=== PATIENT | male | born 1985 | race Caucasian/White ===

== ENCOUNTER 2023-03-02 15:26 | Emergency (ER) | payer MEDICAID ==
[~2023-03-02] VITALS: Ht 180.3 cm; Wt 83.9 kg
[2023-03-02] MEDS ORDERED: ACETAMINOPHEN ES 500 MG TABLET PO ONE (17:30)
[2023-03-02 17:48] LABS: BASOPHILS % (AUTO) 0.6 % (0.0-2.0); EOSINOPHILS # (AUTO) 0.1 K/uL (0.0-0.7); EOSINOPHILS % (AUTO) 2.5 % (0.0-6.0); HEMATOCRIT 34 % (39-51); HEMOGLOBIN 10.9 g/dL (13.5-17.5); LYMPHOCYTES # (AUTO) 0.9 K/uL (0.8-4.8); LYMPHOCYTES % (AUTO) 18.2 % (20.0-44.0); MEAN CORPUSCULAR HEMOGLOBIN 24 PG (26.0-33.0); MEAN CORPUSCULAR HGB CONC 32 g/dl (31.0-36.0); MEAN CORPUSCULAR VOLUME 77 fL (80-96); MONOCYTES # (AUTO) 0.4 K/uL (0.1-1.30); NEUTROPHILS # (AUTO) 3.6 K/uL (1.8-8.9); NEUTROPHILS % (AUTO) 70.7 % (43.0-81.0); PLATELET COUNT (AUTO) 331 K/uL (150-450); RED BLOOD CELL COUNT(AUTO) 4.45 MIL/uL (4.5-6.0); RED CELL DISTRIBUTION WIDTH 22.2 % (11.5-15.0); WHITE BLOOD COUNT (AUTO) 5.2 K/uL (4.3-11.0)
[2023-03-02] MEDS ORDERED: ACETAMINOPHEN 325 MG TABLET ONE (17:55)
[2023-03-02] MEDS ORDERED: ACETAMINOPHEN ES 500 MG TABLET ONE (17:56)
[2023-03-02 18:01] LABS: CALCIUM, SERUM 8.7 mg/dL (8.5-10.1); CREATININE 0.8 mg/dL (0.6-1.3); POTASSIUM 4.3 mmol/L (3.5-5.1)
[2023-03-02] MEDS ORDERED: ACET-2605 PO (18:36)
[2023-03-02] MEDS ORDERED: IBUP-1955 PO (18:36)
[2023-03-02] MEDS ORDERED: HYDR-3972 PO (18:52)
[2023-03-02 19:02] VITALS: BP 129/71; TEMP 97.9; O2SAT 100
== END 2023-03-02 19:01 | disposition home or self-care (01) ==
LOC: ER 15:26
DX: S22.32XA Fracture of one rib, left side, initial encounter for closed fracture (principal); Y04.0XXA Assault by unarmed brawl or fight, initial encounter; Y93.89 Activity, other specified; Y92.89 Other specified places as the place of occurrence of the external cause; Y99.8 Other external cause status
CPT/HCPCS: 36415; 71111-TC; 80048-TC; 85025-TC